=== PATIENT | female | born 1940 | race American Indian/Alaskan Native ===

== ENCOUNTER → 2018-12-07 15:47 | Outpatient (CLI) | payer OTHER, SELFPAY ==
--- NOTE | 2018-12-07 | DI.RAD.S_ITS ---
PROCEDURE: XR WRIST RT MIN 3V INDICATIONS: RIGHT WRIST PAIN TECHNIQUE: 4 views of the wrist were acquired. COMPARISON: [facility], , WRIST MINIMUM 3 VIEWS RIGHT, 11/14/2012, 14:59. FINDINGS: Bones: No fractures or dislocations. No suspicious bony lesions. Moderate first CMC degenerative narrowing. Scaphoid view: No visualized fracture. Soft tissues: No suspicious soft tissue calcifications. IMPRESSION: Moderate first CMC degenerative narrowing most suggestive of osteoarthritis. Dictated by: Ashli Rivero M.D. on 12/07/2018 at 16:25 Approved by: Ashli Rivero M.D. on 12/07/2018 at 16:27
== END ==
PROVIDERS: PCP Family Medicine; Visit Provider Family Medicine
DX: M25.531 Pain in right wrist (principal)
CPT/HCPCS: 73110

== ENCOUNTER → 2020-07-01 12:47 | Outpatient (CLI) | payer OTHER, SELFPAY | PROVIDERS: PCP Family Medicine; Referring Provider Family Medicine; Visit Provider Family Medicine | DX: M85.852 Other specified disorders of bone density and structure, left thigh (principal) | CPT/HCPCS: 77080 ==

== ENCOUNTER → 2021-07-18 09:07 | Outpatient (CLI) | payer MEDICARE, OTHER, SELFPAY ==
--- NOTE | 2021-07-18 | DI.US.S_ITS ---
PROCEDURE: US RENAL COMPLETE INDICATIONS: CHRONIC KIDNEY DISEASE STAGE 3B TECHNIQUE: Real-time scanning was performed of the kidneys and bladder, with image documentation. COMPARISON: [facility], CT, KIDNEY/ URETER/BLADDER, 12/01/2013, 11:54. FINDINGS: Kidneys: Kidneys are normal in size. Right kidney measures 9.2 cm long; left kidney measures 9.3 cm long. Right renal cortical thickness is 1.4 cm; left renal cortical thickness is 1.7 cm. Renal cortical echotexture is normal. No hydronephrosis or nephrolithiasis. No suspicious solid mass lesions. Bladder: Pre-void bladder volume is 413 mL. Post-void residual is 5 mL. Pre-void images demonstrate no intraluminal masses or stones. On pre-void images, both ureteral jets are noted with color Doppler interrogation. (Of note, ureteral jets may not be detectable in up to 25% of cases due to insufficient differences in specific gravity between ureteral and bladder urine). Miscellaneous: No free pelvic fluid. Increased liver echogenicity is incidentally noted. IMPRESSION: Unremarkable kidneys by ultrasound, without hydronephrosis. Trivial postvoid residual, 5 cc. The liver demonstrates increased echogenicity. This finding is nonspecific, yet it is most commonly attributed to fatty infiltration. Dictated by: Deion Horton M.D. on 07/18/2021 at 9:32 Approved by: Deion Horton M.D. on 07/18/2021 at 9:34
== END ==
PROVIDERS: PCP Family Medicine; Referring Provider Family Medicine; Visit Provider Family Medicine
DX: N18.32 Chronic kidney disease, stage 3b (principal)
CPT/HCPCS: 76770

== ENCOUNTER → 2023-02-24 14:15 | Outpatient (CLI) | payer MEDICARE, OTHER, SELFPAY ==
--- NOTE | 2023-02-24 | DI.RAD.S_ITS ---
PROCEDURE: XR HAND RT 2V INDICATIONS: ARTHRITIS TECHNIQUE: 2 views of the hand(s) acquired. COMPARISON: [facility], , HAND 3V RIGHT, 08/31/2017, 12:04. [facility], , HAND 3V LEFT, 08/31/2017, 12:04. [facility], , HAND 3V LEFT, 11/14/2012, 14:59. FINDINGS: Bones: Again seen pin fragment within the distal 4th phalanx with chronic osseous fusion of the DIP joint. No acute fractures. No suspicious bony lesions. Again seen severe degenerative changes of the hand, primarily involving the distal interphalangeal joints with suggestion of central erosions. Progression of osteoarthritic changes of the 2nd distal interphalangeal joint. Osteoarthritic changes of the 1st CMC and 2nd and 3rd MCP joints. Progression of the 3rd MCP. Soft tissues: No suspicious soft tissue calcifications. IMPRESSION: Diffuse severe osteoarthritic changes of the right hand with suggestion of central erosions, raising the possibility for erosive osteoarthritis. Progression is most notable at the 1st distal interphalangeal joint and 3rd metacarpophalangeal joint. Dictated by: Adrian Marks M.D. on 02/24/2023 at 16:24 Approved by: Adrian Marks M.D. on 02/24/2023 at 16:29
--- NOTE | 2023-02-24 | DI.RAD.S_ITS ---
PROCEDURE: XR HAND LT 2V INDICATIONS: ARTHRITIS TECHNIQUE: 2 views of the hand(s) acquired. COMPARISON: [facility], , HAND 3V LEFT, 08/31/2017, 12:04. [facility], , HAND 3V LEFT, 11/14/2012, 14:59. FINDINGS: Bones: No fractures or dislocations. Carpal bones are normally aligned. No suspicious bony lesions. Redemonstration of severe diffuse osteoarthritic changes of the left hand, primarily at the distal interphalangeal joints of the fingers, interphalangeal joint of thumb and 1st carpometacarpal joint. There is progression of osteoarthritic changes at the 4th and 5th proximal interphalangeal joint and 1st carpometacarpal joint. Soft tissues: No suspicious soft tissue calcifications. IMPRESSION: Redemonstration of severe osteoarthritic changes of the hand. There is progression of osteoarthritic changes at the 4th and 5th proximal interphalangeal joints and 1st carpometacarpal joint. Possible central erosions at several DIP joints, suggestive of erosive osteoarthritis. No acute fractures. Dictated by: Adrian Marks M.D. on 02/24/2023 at 16:19 Approved by: Adrian Marks M.D. on 02/24/2023 at 16:24
== END ==
PROVIDERS: PCP Physician Assistant; Referring Provider Physician Assistant; Visit Provider Physician Assistant
DX: M19.049 Primary osteoarthritis, unspecified hand
CPT/HCPCS: 73120

== ENCOUNTER 2024-08-05 09:18 | Emergency (ER) | payer MEDICARE, OTHER, SELFPAY ==
--- NOTE | 2024-08-05 09:23 | ED_ITS ---
HPI - General Adult General Chief complaint: Diabetic Problem Stated complaint: Up and down Blood sugars Time Seen by Provider: 08/05/24 09:23 History of Present Illness HPI narrative: 84-year-old female history of hyperlipidemia, diabetes, comes into the ED from home for evaluation of abnormal blood sugars. She states that she has a sensor to her left arm, did switch this since her out a few days ago, since then she is noticed her sugars have been going up and down, was in the 60s earlier today, went up to the 200s and then back down to the 60s within an hour of each other. She did eat a sweets night before coming in, at time of initial evaluation patient's blood sugar from sensor is 286, at bedside point of care it is 208. Patient is not complaining of any symptoms such as headache visual disturbances chest pain shortness breath fever chills nausea vomiting abdominal pain or any other GI/ symptoms at this time. States she has been compliant with her diabetic medication which is Januvia, she states that she did not give herself any Less or anymore of this medication before coming in. Related Data Home Medications Medication Instructions Recorded Confirmed ESTRADIOL (Climara) topical * DOSE/FREQUENCY ##0 03/08/10 Simvastatin (Zocor) 40 mg PO Q DAY ##0 03/08/10 [ANTIDEPRESSANT] ##0 03/08/10 [TAMERA ] 40 mg Q DAY ##0 03/08/10 Allergies Allergy/AdvReac Type Severity Reaction Status Date / Time INGREDIENT: NKDA - NO KNOWN Allergy Unknown Uncoded 11/17/17 12:54 DRUG ALLERGIES Review of Systems Review of Systems Narrative: General: Abnormal blood sugars, Denies fever, chills, weight loss HEENT: Denies headache, eye drainage, eye irritation, head trauma, sore throat, voice change Cardiovascular: Denies any chest pain, palpitations, shortness of breath, tachycardia Respiratory: Denies any shortness of breath, cough, wheeze, stridor GI/: Denies any abdominal pain, nausea, vomiting, diarrhea, bright red blood per rectum, melanotic stools, urinary frequency, urinary retention, dysuria, hematuria MSK: Denies any joint pain, muscle pains, swelling Skin: Denies any rashes, lesions, discoloration Neuro: Denies any headache, lightheadedness, dizziness, fainting, weakness Psych: Denies SI/HI Patient History Social History Smoking Status: Never smoker Exam Narrative Exam Narrative: General: Cooperative, comfortable, well-developed, not in acute distress HEENT: Normocephalic, atraumatic, PERRLA, normal sclera, eyelids normal, Neck: Active full range of motion, atraumatic Chest: Normal to inspection, negative crepitus, no overlying erythema ecchymosis Respiratory: Normal respiratory effort, not in acute respiratory distress, clear to auscultation bilaterally negative cough, wheeze, tachypnea, rhonchi, rales Cardiology: Regular rate rhythm negative gallop, murmur, rubs GI/: Normal to inspection, soft, nonrigid, no tenderness to palpation, exam deferred MSK: Full range of active range of motion of all 4 extremities, atraumatic Skin: No rashes lesions noted Neuro: Alert awake oriented x3, moves all 4 extremities spontaneously, cranial nerves intact, able to answer all questions appropriately follows commands appropriately Psych: Cooperative, negative suicidal or homicidal ideations Initial Vital Signs Initial Vital Signs: Vital Signs Temperature 98.5 F 08/05/24 09:25 Pulse Rate 88 08/05/24 09:25 Respiratory Rate 16 08/05/24 09:25 Blood Pressure 140/62 08/05/24 09:25 Pulse Oximetry 97 08/05/24 09:25 Oxygen Delivery Method Room Air 08/05/24 09:25 Course Orders Ordered: ED Orders 08/05/24 09:53 BMP [Basic Metabolic Panel] Stat CBC No Diff [Complete Blood Count NO DIFF] Stat Vital Signs Vital signs: Vital Signs - 8 hr 08/05/24 09:25 Temperature 98.5 F Pulse Rate 88 Respiratory Rate 16 Blood Pressure 140/62 Pulse Oximetry 97 Oxygen Delivery Method Room Air Medical Decision Making Differential Diagnosis Differential Diagnosis: Electrolyte abnormality, hyperglycemia, medical equipment failure Lab Data 08/05/24 09:53 08/05/24 09:53 Labs: Lab Results 08/05/24 Range/Units 09:53 WBC 6.9 (4.5-11.0) X10^3/uL RBC 4.67 (4.0-5.2) X10^6/uL Hgb 13.5 (12.0-16.0) g/dL Hct 40.3 (36-46) % MCV 86.3 (80-100) fL MCH 29.0 (26-34) PG MCHC 33.6 (30-36) % RDW 13.4 (11.6-14.8) % Plt Count 268 (150-400) X10^3/uL Sodium 135 L (137-145) mmol/L Potassium 3.5 (3.4-5.1) mmol/L Chloride 102 (98-107) mmol/L Carbon Dioxide 25 (22-32) mmol/L BUN 22 H (7-17) mg/dL Creatinine 0.97 (0.52-1.04) mg/dL Estimated GFR 58 L (>60) mL/min BUN/Creatinine Ratio 22.7 H (6-22) Glucose 223 H (80-110) mg/dL Calcium 9.3 (8.4-10.2) mg/dL Point of Care Testing Glucose POC 203 Urine Dip Bedside Urine Glucose 1000 mg/dl Bedside Urine Bilirubin - Negative Bedside Urine Ketone - Negative Urine Specific Eastern 1.01 Bedside Urine Occult Blood - Negative Bedside Urine pH 7.0 Bedside Urine Protein - Negative Bedside Urine Urobilinogen - Negative Bedside Urine Nitrite - Negative Bedside Urine Leukocytes - Negative Esterase Point of care testing: Point of Care Testing Glucose POC 203 Urine Dip Bedside Urine Glucose 1000 mg/dl Bedside Urine Bilirubin - Negative Bedside Urine Ketone - Negative Urine Specific Eastern 1.01 Bedside Urine Occult Blood - Negative Bedside Urine pH 7.0 Bedside Urine Protein - Negative Bedside Urine Urobilinogen - Negative Bedside Urine Nitrite - Negative Bedside Urine Leukocytes - Negative Esterase MDM Narrative Medical decision making narrative: 84-year-old female with a history of diabetes on Januvia, hyperlipidemia presents for abnormal blood sugars, states that over the past day her blood sugar has been showing high and low, states that it was in the 60s at around 7, states that she did eat a small snack and it went up to the 200s, states that an hour after that just prior to arrival she checked it again and was down to the 60s. She states that she checks her sugars with the sensor to her left arm, states that she did change this sensor few days ago. She has not complaining of any other symptoms. Patient did have lab work and urinalysis performed here in the emergency department. When patient was initially evaluated her sensor showed 286, bedside point of care showed 208. At time of discharge patients sensor showed 178 and our point of care showed 150s. Instructed patient to continue to monitor sugars in the next 24 hours, as well as to follow up with PCP and Endocrinology in outpatient setting strict return precautions given safe for discharge home with outpatient follow up Discharge Plan Departure Patient Disposition: Home Clinical Impression: Hyperglycemia Activity Restrictions/Additional Instructions: It is recommended that you follow up with endocrinology in an outpatient setting for continued evaluation treatment of your blood sugar Anam Blackman, DO Endocrinology [address] [place], [id number] tel:[phone] Please read the discharge instructions sheet carefully and bring all papers to all doctor follow-up visits, as it may contain information that your doctor may want to see. Disease processes change and evolve, if your symptoms worsen or if you develop any new symptoms that are concerning to you please return for evaluation. Your evaluation today does not show any evidence of any life- threatening/serious illnesses requiring admission to the hospital or surgery. Please follow-up with your doctor for re-evaluation in approximately 1 day. Seek immediate medical attention for any worrisome symptoms. *If you do not have a primary care provider please contact the [facility] Resource line at [phone]. They will ask some questions about your medical history and help get you set up with a doctor in the community. Prescriptions: No Action ESTRADIOL (Climara) Topical * [place] DOSE/FREQUENCY Qty: 0 Simvastatin (Zocor) 40 mg PO Q DAY Qty: 0 [ANTIDEPRESSANT] Qty: 0 [TAMERA ] 40 mg Q DAY Qty: 0 Referrals: Agnieszka Allen PA-C [Primary Care Provider] - Stand Alone Forms: Patient Portal/API/Survey
[2024-08-05 09:25] VITALS: BP 140/62; PULSE 88; RESP 16; TEMP 36.9; O2SAT 97; BMI 23.6
[2024-08-05 10:03] LABS: Hematocrit 40.3 % (36-46); Hemoglobin 13.5 g/dL (12.0-16.0); Mean Corpuscular HGB Conc 33.6 % (30-36); Mean Corpuscular Volume 86.3 fL (80-100); Platelet Count 268 X10^3/uL (150-400); Red Blood Cell Count 4.67 X10^6/uL (4.0-5.2); Red Cell Distribution Width 13.4 % (11.6-14.8); White Blood Cell Count 6.9 X10^3/uL (4.5-11.0)
[2024-08-05 10:13] LABS: BUN Creatinine Ratio 22.7 (6-22); Blood Urea Nitrogen 22 mg/dL (7-17); Calcium 9.3 mg/dL (8.4-10.2); Carbon Dioxide 25 mmol/L (22-32); Chloride 102 mmol/L (98-107); Estimated Glomerular Filt Rate 58 mL/min (>60); Glucose 223 mg/dL (80-110); HEMOLYSIS < 15 (0-50); Potassium 3.5 mmol/L (3.4-5.1); Sodium 135 mmol/L (137-145)
--- NOTE | 2024-08-05 10:26 | PC.NURSE ---
Addendum entered by Jonathan Greenwood R.N. 08/05/24 10:27: Pt does not own a manual glucometer at home stating she doesnt do fingerstick BG checks at home. Educated pt that CGM manufacturers always recommend using manual fingerstick to compare with CGM when concern for BG issues. Pt expressed understanding and her granddaughter Mariela states we need to get you one so you can check it at home. Original Note: Rechecked pt's glucometer reading on hospital device which reads 157mg/dl. Pt's freestyle andreia sensor reading 178. Notified provider.
--- NOTE | 2024-08-05 11:20 | PC.NURSE ---
Updated Dr. Koenig that pt's BG has decreased to 92. Pt experiencing some nausea. Provided pt with PO granola bar, cheese stick, and supplies to go home with. Pt ate snacks and was educated on importance of protein to maintain glucose levels. Dr. Koenig okayed pt discharge.
--- NOTE | 2024-08-05 11:20 | PC.NURSE ---
PT BG 92mg/dl on hospital glucometer. Provided pt with extra snacks incase of hypoglycemia and encouraged her to closely monitor BG's over the course of today. She usually eats half a sweet n salty granola bar which includes 20g carbohydrates per bar. Educated pt on importance of including protein when experiencing hypoglycemia to maintain glucose. Pt expressed understanding.
[2024-08-05 11:25] VITALS: BP 132/67; PULSE 64; RESP 14; O2SAT 99
[2024-08-05 11:27] VITALS: BP 132/67; PULSE 64; RESP 14; O2SAT 99
== END 2024-08-05 11:27 | disposition home or self-care (01) ==
PROVIDERS: Emergency Provider Student in an Organized Health Care Education/Training Program; PCP Physician Assistant
DX: R73.9 Hyperglycemia, unspecified (principal)
CPT/HCPCS: 36415; 80048; 81003; 82962; 85027; 99282; 99283

== ENCOUNTER → 2024-12-27 11:12 | Outpatient (CLI) | payer MEDICARE, OTHER, SELFPAY ==
--- NOTE | 2024-12-27 11:15 | DI.RAD.S_ITS ---
PROCEDURE: XR HAND LT 2V INDICATIONS: HAND PAIN TECHNIQUE: 2 views of the hand(s) acquired. COMPARISON: [facility], CR, XR HAND LT 2V, 02/24/2023, 14:55. [facility], CR, XR HAND RT 2V, 02/24/2023, 14:55. [facility], CR, HAND 3V RIGHT, 08/31/2017, 12:04. FINDINGS: Bones: There is again seen degenerative osteoarthritic changes especially involving the distal interphalangeal joints diffusely and 1st carpal metacarpal joint. There has been no significant interval change. There is diffuse bony osteopenia. No acute fracture or dislocation is identified. Soft tissues: No suspicious soft tissue calcifications. IMPRESSION: No acute bony abnormality. Dictated by: Mukul Abarca M.D. on 01/03/2025 at 14:33 Approved by: Mukul Abarca M.D. on 01/03/2025 at 14:37
--- NOTE | 2024-12-27 11:15 | DI.RAD.S_ITS ---
PROCEDURE: XR HAND RT 2V INDICATIONS: HAND PAIN TECHNIQUE: 2 views of the hand(s) acquired. COMPARISON: [facility], CR, XR HAND RT 2V, 02/24/2023, 14:55. [facility], , HAND 3V RIGHT, 08/31/2017, 12:04. FINDINGS: Bones: Degenerative changes are again seen especially involving the distal interphalangeal joints and 1st carpometacarpal joint. No acute fractures or dislocations are identified. There is diffuse bony osteopenia. There is a pin placed in the area of the 4th DIP fusion. Soft tissues: No suspicious soft tissue calcifications. IMPRESSION: No acute bony abnormality. Dictated by: Mukul Abarca M.D. on 01/03/2025 at 14:37 Approved by: Mukul Abarca M.D. on 01/03/2025 at 14:40
== END ==
PROVIDERS: PCP Nurse Practitioner Family; Referring Provider Nurse Practitioner Family; Visit Provider Nurse Practitioner Family
DX: M19.90 Unspecified osteoarthritis, unspecified site (principal)
CPT/HCPCS: 73120

== ENCOUNTER → 2025-01-05 14:57 | Outpatient (CLI) | payer MEDICARE, OTHER, SELFPAY ==
--- NOTE | 2025-01-05 14:59 | DI.RAD.S_ITS ---
PROCEDURE: XR DEXA AXIAL SKELETON INDICATIONS: POST MENOPAUSAL SCREEN COMPARISON: [facility], , XR DEXA AXIAL SKELETON, 07/01/2020, 13:01. [facility], CR, DEXA AXIAL SKELETON, 12/29/2016, 15:20. FINDINGS: Lumbar Spine: Bone mineral density 1.244 g/cm2, T score 1.8, previously 2.5. Left Femoral Neck: Bone mineral density 0.669 g/cm2, T score -1.6. Left Hip: Bone mineral density 0.828 g/cm2, T score -0.9, previously -0.6. Fracture Risk Calculation (when applicable): 10-year fracture risk of a major osteoporotic fracture 8.6 percent and of a hip fracture 2.3 percent. (T score greater or equal to -1.0 to: NORMAL) (T score from -1.1 to -2.4: OSTEOPENIA) (T score less than or equal to -2.5: OSTEOPOROSIS) IMPRESSION: Osteopenia . Follow-up guidelines as follows: Osteoporosis: Consider a repeat DEXA and Vertebral Fracture Assessment (VFA) exam in 2 years or sooner if medically necessary, to reassess this patient's status. Osteopenia: Consider a repeat DEXA in 2-3 years to reassess this patient's status, or if there is a new clinical indication. Normal: Consider a repeat DEXA in 5 years or sooner, or if there is a new clinical indication. All treatment decisions require clinical judgment and consideration of individual patient factors, including patient preferences, comorbidities, previous drug use, risk factors not captured in the FRAX model (e.g., frailty, falls, vitamin D deficiency, increased bone turnover, interval significant decline in bone density ) and possible under- or over-estimation of fracture risk by FRAX. In addition, the NOF Guide recommends that FDA-approved medical therapies be considered in postmenopausal women and men age >= 50 years with a: * Hip or vertebral (clinical or morphometric) fracture * T-score of <=-2.5 at the spine or hip * Ten-year fracture probability by FRAX of >= 3% for hip fracture or >=20% for major osteoporotic fracture. Dictated by: Kenny Grant M.D. on 01/05/2025 at 21:32 Approved by: Kenny Grant M.D. on 01/05/2025 at 21:32
== END ==
PROVIDERS: PCP Nurse Practitioner Family; Referring Provider Nurse Practitioner Family; Visit Provider Physician Assistant
DX: Z78.0 Asymptomatic menopausal state (principal); M85.89 Other specified disorders of bone density and structure, multiple sites
CPT/HCPCS: 77080

== ENCOUNTER → 2025-02-12 13:19 | Outpatient (CLI) | payer MEDICARE, OTHER, SELFPAY ==
--- NOTE | 2025-02-12 13:23 | DI.RAD.S_ITS ---
PROCEDURE: XR HIP W PEL IF DONE LT 2V INDICATIONS: LT HIP PAIN TECHNIQUE: AP pelvis with lateral view(s) of the left hip(s). COMPARISON: None. FINDINGS: Bones: No fractures or dislocations. Mild osteoarthritic degenerative change of the left hip includes joint space narrowing, marginal osteophytosis and acetabular subchondral sclerosis. Pelvic ring appears intact. No suspicious bony lesions. Soft tissues: The visualized bowel gas pattern is normal. No suspicious soft tissue calcifications. IMPRESSION: Degenerative change of the left hip without evidence of acute bony abnormality. Dictated by: Dwayne Duncan M.D. on 02/13/2025 at 5:57 Approved by: Dwayne Duncan M.D. on 02/13/2025 at 6:38
== END ==
PROVIDERS: PCP Nurse Practitioner Family; Referring Provider Nurse Practitioner Family; Visit Provider Physician Assistant
DX: M25.552 Pain in left hip (principal)
CPT/HCPCS: 73502

== ENCOUNTER → 2025-05-07 10:30 | Outpatient (CLI) | payer MEDICARE, OTHER, SELFPAY ==
--- NOTE | 2025-05-07 10:35 | DI.RAD.S_ITS ---
PROCEDURE: XR CHEST 2V INDICATIONS: UNEXPLAINED WEIGHT LOSS TECHNIQUE: 2 views of the chest were acquired. COMPARISON: None. FINDINGS: Surgical changes and devices: None. Lungs and pleura: Lungs are clear. No pleural effusions or pneumothorax. Mediastinum: Mediastinal contours are normal. Heart size is normal. Bones and chest wall: No suspicious bony abnormalities. Soft tissues appear unremarkable. IMPRESSION: No acute cardiopulmonary abnormality is seen. Dictated by: Slime Copeland M.D. on 05/07/2025 at 17:52 Approved by: Slime Copeland M.D. on 05/07/2025 at 17:53
== END ==
PROVIDERS: PCP Physician Assistant; Referring Provider Physician Assistant; Visit Provider Physician Assistant
DX: R63.4 Abnormal weight loss (principal)
CPT/HCPCS: 71046

== ENCOUNTER 2025-07-10 12:29 | Emergency (ER) | payer MEDICARE, OTHER, SELFPAY ==
[2025-07-10 12:44] VITALS: BP 125/58; PULSE 60; RESP 16; TEMP 36.6; O2SAT 99; BMI 23.3
--- NOTE | 2025-07-10 12:50 | DI.CT.S_ITS ---
PROCEDURE: CT CERVICAL SPINE WO CON INDICATIONS: fall TECHNIQUE: Noncontrast 3 mm thick sections acquired from the skull base to the T4 level. Sagittal and coronal reformats were then constructed. For radiation dose reduction, the following was used: automated exposure control, adjustment of mA and/or kV according to patient size. COMPARISON: None. FINDINGS: Image quality: Excellent. Bones: No fractures or dislocations. Visualized superior ribs are intact. Multilevel degenerative changes are present. Soft tissues: Prevertebral soft tissues are normal in thickness. No paravertebral hematomas. No apical pneumothoraces. IMPRESSION: No displaced fracture or traumatic subluxation. Dictated by: Ashli Rivero M.D. on 07/10/2025 at 13:13 Approved by: Ashli Rivero M.D. on 07/10/2025 at 13:14
--- NOTE | 2025-07-10 12:50 | DI.CT.S_ITS ---
PROCEDURE: CT HEAD/BRAIN WO CON INDICATIONS: fall TECHNIQUE: Noncontrast 4.5 mm thick angled axial sections acquired from the foramen magnum to the vertex, with coronal and sagittal reformats. For radiation dose reduction, the following was used: automated exposure control, adjustment of mA and/or kV according to patient size. COMPARISON: [facility], CT, CT CERVICAL SPINE WO CON, 07/10/2025, 12:56. FINDINGS: Image quality: Diagnostic. CSF spaces: Basal cisterns are patent. No extra-axial fluid collections. The ventricles are symmetric in size and shape. Brain: No intracranial bleeds or mass effect. There is cerebral volume loss, with resultant ventricular and sulcal prominence. There are periventricular and deep white matter chronic small vessel ischemic changes. There is intracranial internal carotid artery atherosclerosis. Skull and face: Calvarium and visualized facial bones appear intact, without suspicious lesions. Sinuses: Visualized sinuses and mastoids are clear. IMPRESSION: 1. No acute intracranial process. 2. Moderate atrophy and chronic microvascular ischemic changes. Dictated by: Ashli Rivero M.D. on 07/10/2025 at 13:12 Approved by: Ashli Rivero M.D. on 07/10/2025 at 13:13
--- NOTE | 2025-07-10 12:50 | DI.RAD.S_ITS ---
PROCEDURE: XR SHOULDER LT MIN 2V INDICATIONS: fall TECHNIQUE: 3 views of the shoulder were acquired. COMPARISON: None. FINDINGS: Bones: No fractures or dislocations. Glenohumeral joint degenerative change. No suspicious bony lesions. Visualized ribs appear intact. Soft tissues: Calcific supraspinatus tendinopathy. IMPRESSION: No acute bony abnormality. Glenohumeral joint degenerative change. Dictated by: Wale Fuentes M.D. on 07/10/2025 at 13:15 Approved by: Wale Fuentes M.D. on 07/10/2025 at 13:17
--- NOTE | 2025-07-10 12:50 | DI.RAD.S_ITS ---
PROCEDURE: XR HIP W PEL IF DONE LT 2V INDICATIONS: fall TECHNIQUE: AP pelvis with lateral view(s) of the left hip(s). COMPARISON: [facility], CR, XR HIP W PEL LT 2V, 02/12/2025, 13:31. FINDINGS: Bones: No fractures or dislocations. Pelvic ring appears intact. No suspicious bony lesions. Soft tissues: The visualized bowel gas pattern is normal. No suspicious soft tissue calcifications. IMPRESSION: No acute bony abnormality. Dictated by: Wale Fuentes M.D. on 07/10/2025 at 13:17 Approved by: Wale Fuentes M.D. on 07/10/2025 at 13:18
--- NOTE | 2025-07-10 13:50 | ED.FALL ---
HPI - Fall <Elo Zarco PA-C - Last Filed: 07/10/25 15:01> General Chief Complaint: Fall Stated Complaint: Fell hit head pcp ref no thinners Time Seen by Provider: 07/10/25 12:50 Source: patient Mode of arrival: Family Vehicle History of Present Illness HPI Narrative: 85-year-old female with past medical history hyperlipidemia, diabetes presents to the ED status post a mechanical fall sustained earlier today. Patient states that she was coming down a step ladder when she fell from the 2nd step, struck the left backside of her head. Patient also struck her left shoulder and left hip. Was seen at a walk-in clinic earlier today, scalp laceration was repaired with rafy. Patient was sent to the ED for further evaluation. Patient is complaining of severe left-sided shoulder pain. Patient also complains of left-sided hip pain, however not quite as painful as the left shoulder. No numbness, tingling, weakness. No fever, chills, chest pain, shortness of breath. Patient denies loss of consciousness. Patient is not on thinners. Related Data Home Medications ?Medication ?Instructions ?Recorded ?Confirmed ESTRADIOL (Climara) topical * DOSE/FREQUENCY ##0 03/08/10 Simvastatin (Zocor) 40 mg PO Q DAY ##0 03/08/10 [ANTIDEPRESSANT] ##0 03/08/10 [TAMERA ] 40 mg Q DAY ##0 03/08/10 Allergies Allergy/AdvReac Type Severity Reaction Status Date / Time INGREDIENT: NKDA - NO KNOWN Allergy Unknown Uncoded 07/10/25 12:44 DRUG ALLERGIES Review of Systems <Elo Zarco PA-C - Last Filed: 07/10/25 15:01> Constitutional Constitutional: Denies chills, Denies fatigue, Denies fever(s), Denies frequent falls, Denies lethargy and Denies weakness Eyes Eyes: Denies change in vision, Denies eye discharge, Denies irritation and Denies loss of vision ENT Ears, Nose, Mouth, and Throat: Denies change in voice, Denies dizziness, Denies neck pain, Denies sore throat and Denies throat swelling Cardiovascular Cardiovascular: Denies chest pain, Denies irregular heart rhythm, Denies lightheadedness, Denies palpitations, Denies dyspnea, Denies dyspnea on exertion and Denies orthopnea Respiratory Respiratory: Denies cough, Denies dyspnea, Denies dyspnea on exertion and Denies wheezing Gastrointestinal Gastrointestinal: Denies abdominal pain, Denies change in bowel habits, Denies diarrhea, Denies nausea and Denies vomiting Musculoskeletal Musculoskeletal: Denies neck pain and Denies numbness Comments: Left shoulder, left hip pain Integumentary/Breasts Skin/Breast: Denies pruritus, Denies erythema, Denies rash and Denies wounds Comments: Scalp laceration Neurologic Neurologic: Denies behavioral changes, Denies confusion, Denies dizziness, Denies frequent falls, Denies loss of vision, Denies numbness and Denies weakness Psychiatric Psychiatric: Denies anxiety, Denies behavioral changes, Denies confusion, Denies depression, Denies homicidal ideation and Denies suicidal ideation Endocrine Endocrine: Denies fatigue, Denies flushing and Denies palpitations Hematologic/Lymphatic Hematologic/Lymphatic: Denies easy bruising Allergic/Immunologic Allergic/Immunologic: Denies urticaria, Denies throat swelling and Denies wheezing Patient History <Elo Zarco PA-C - Last Filed: 07/10/25 15:01> Social History Smoking Status: Never smoker Smoking Status: Never smoker Exam <Elo Zarco PA-C - Last Filed: 07/10/25 15:01> Narrative Exam Narrative: Const General:?cooperative, healthy appearing and comfortable [facility] Head: There is a 3 cm linear scalp laceration to the left, backside of the head. This has been repaired with rafy. Wound is not bleeding. Ears:?hearing grossly normal bilaterally Nose:?external nose normal Face and sinus:?normal facial exam and sinuses nontender Mouth:?oral mucosae normal Throat:?posterior oropharynx normal Eyes General:?appearance normal, both eyes and all related structures Neck Neck:?normal visual inspection and no lymphadenopathy noted Resp Effort & Inspection:?normal respiratory effort Auscultation:?clear to auscultation bilaterally Cardio Rate:?regular rate Rhythm:?regular rhythm Musculoskeletal There is an abrasion, significant tenderness to the left shoulder. Mild tenderness to palpation of the left hip. Patient is hobbling, however able to bear weight and walk. No midline tenderness to palpation. Neurovascularly intact. Neuro General:?patient alert, patient awake and patient oriented x3 Initial Vital Signs Initial Vital Signs: Vital Signs Temperature 97.9 F 07/10/25 12:44 Pulse Rate 60 07/10/25 12:44 Respiratory Rate 16 07/10/25 12:44 Blood Pressure 125/58 L 07/10/25 12:44 Pulse Oximetry 99 07/10/25 12:44 Oxygen Delivery Method Room Air 07/10/25 12:44 <John Marsh MD - Last Filed: 07/16/25 08:59> Initial Vital Signs Initial Vital Signs: Vital Signs Temperature 97.9 F 07/10/25 12:44 Pulse Rate 60 07/10/25 12:44 Respiratory Rate 16 07/10/25 12:44 Blood Pressure 125/58 L 07/10/25 12:44 Pulse Oximetry 99 07/10/25 12:44 Oxygen Delivery Method Room Air 07/10/25 12:44 Course <Elo Zarco PA-C - Last Filed: 07/10/25 15:01> Orders Ordered: Discontinued Medications Acetaminophen (Acetaminophen 325 Mg Tablet) 975 mg PO NOW ONE Stop: 07/10/25 12:51 Last Admin: 07/10/25 14:24 Dose: 975 mg Documented By: [facility] Vital Signs Vital signs: Vital Signs - 8 hr 07/10/25 12:44 Temperature 97.9 F Pulse Rate 60 Respiratory Rate 16 Blood Pressure 125/58 L Pulse Oximetry 99 Oxygen Delivery Method Room Air <John Marsh MD - Last Filed: 07/16/25 08:59> Orders Ordered: Discontinued Medications Acetaminophen (Acetaminophen 325 Mg Tablet) 975 mg PO NOW ONE Stop: 07/10/25 12:51 Last Admin: 07/10/25 14:24 Dose: 975 mg Documented By: [facility] Vital Signs Vital signs: Vital Signs - 8 hr 07/10/25 12:44 Temperature 97.9 F Pulse Rate 60 Respiratory Rate 16 Blood Pressure 125/58 L Pulse Oximetry 99 Oxygen Delivery Method Room Air MDM - Fall <Elo Zarco PA-C - Last Filed: 07/10/25 15:01> MDM Narrative Medical decision making narrative: 85-year-old female with past medical history hyperlipidemia, diabetes presents to the ED status post a mechanical fall sustained earlier today. Concern for fracture/dislocation versus musculoskeletal sprain/strain versus intracranial hemorrhage versus laceration versus other. Will obtain CT head, CT C-spine, shoulder x-ray, hip x-ray. Will give Tylenol for pain. Will reassess. CT C-spine, CT head without acute findings. Hip x-ray and shoulder x-ray without acute findings. Patient's symptoms are likely due to contusions, laceration to the scalp. Patient's tetanus is up-to-date. Wound care, signs of infection discussed with patient. Staple removal discussed with patient. Offered a sling for comfort, however patient declines. Recommend Tylenol for pain. ED return precautions discussed with patient. Patient verbalized understanding. Medical records reviewed: Yes Discharge Plan Departure Patient Disposition: Home Clinical Impression: Laceration Instructions: DI for Laceration Repair -- [place], How to Prevent Falls Activity Restrictions/Additional Instructions: You were evaluated in the emergency department today for a fall. Your CT scans were normal. It appears that you have a bad sprain of the shoulder. The rafy in the scalp laceration will need to be removed in 7 days. You may return to the walk-in clinic, the ED or your PCP's office for staple removal. Please watch for signs of infection including worsening redness, warmth, pain, swelling, discharge. You may take 1000 mg of Tylenol every 8 hours for pain. Return to the ED if you have any worsening symptoms, signs of infection. Prescriptions: No Action ESTRADIOL (Climara) Topical * [place] DOSE/FREQUENCY Qty: 0 Simvastatin (Zocor) 40 mg PO Q DAY Qty: 0 [ANTIDEPRESSANT] Qty: 0 [TAMERA ] 40 mg Q DAY Qty: 0 Referrals: John Krishnamurthy PA-C [Primary Care Provider, Medical] Stand Alone Forms: Patient Portal/API ED Sign-out <John Marsh MD - Last Filed: 07/16/25 08:59> Cosign ED Attending [place] Attestation: I was immediately available in the department for consultation. ?This documentation has been reviewed and I agree with assessment and plan. Supervised by John Marsh MD
[2025-07-10] MEDS: ACETAMINOPHEN 325 MG TABLET 975 MG PO (14:24)
[2025-07-10 14:58] VITALS: BP 128/60; PULSE 54; RESP 17; O2SAT 98
== END 2025-07-10 15:02 | disposition home or self-care (01) ==
PROVIDERS: Emergency Provider Student in an Organized Health Care Education/Training Program; PCP Physician Assistant
DX: S01.01XA Laceration without foreign body of scalp, initial encounter (principal); M25.512 Pain in left shoulder; W10.9XXA Fall (on) (from) unspecified stairs and steps, initial encounter; M25.552 Pain in left hip
CPT/HCPCS: 70450; 72125; 73030; 73502; 99283; 99284

== ENCOUNTER → 2025-07-17 10:44 | Outpatient (CLI) | payer MEDICARE, OTHER, SELFPAY ==
--- NOTE | 2025-07-17 10:48 | DI.RAD.S_ITS ---
PROCEDURE: XR FEMUR LT MIN 2V INDICATIONS: LT HIP PAIN TECHNIQUE: 2 views of the femur were acquired. COMPARISON: [facility], CR, XR HIP W PEL LT 2V, 07/17/2025, 10:51. FINDINGS: Bones: No fractures or dislocations. No suspicious bony lesions. Moderate left axial hip joint space narrowing with mild periarticular osteophyte formation. There is mild narrowing of the left medial femoral tibial joint. Soft tissues: No suspicious soft tissue calcifications or masses. Vascular calcifications indicate atherosclerosis. IMPRESSION: 1. No acute bony abnormality. 2. Hip and knee joint degeneration. Dictated by: Saud Otero [facility] Interpreted: Berto Vee MD on 07/17/2025 at 12:04 Approved by: Berto Vee M.D. on 07/17/2025 at 13:18
--- NOTE | 2025-07-17 10:48 | DI.RAD.S_ITS ---
PROCEDURE: XR HIP W PEL IF DONE LT 2V INDICATIONS: LT HIP PAIN TECHNIQUE: AP pelvis with lateral view(s) of the left hip(s). COMPARISON: [facility], CR, XR HIP W PEL LT 2V, 07/10/2025, 12:47. FINDINGS: Bones: No fractures or dislocations. Pelvic ring appears intact. No suspicious bony lesions. Mild symmetric axial hip joint space narrowing with minimal periarticular osteophyte formation. Degenerative disc and facet disease involves the inferior lumbar spine. Soft tissues: The visualized bowel gas pattern is normal. No suspicious soft tissue calcifications. 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 Dictated by: Saud Otero [facility] Interpreted: Berto Vee MD on 07/17/2025 at 12:09 Transcribed by: NIDHI on 07/17/2025 at 12:10 Approved by: Berto Vee M.D. on 07/17/2025 at 13:17
== END ==
PROVIDERS: PCP Physician Assistant; Referring Provider Physician Assistant; Visit Provider Nurse Practitioner Family
DX: M16.12 Unilateral primary osteoarthritis, left hip (principal); M17.12 Unilateral primary osteoarthritis, left knee; M51.369 Other intervertebral disc degeneration, lumbar region without mention of lumbar back pain or lower extremity pain; M47.816 Spondylosis without myelopathy or radiculopathy, lumbar region; M25.552 Pain in left hip
CPT/HCPCS: 73502; 73552